=== PATIENT | female | born 1950 | race Caucasian/White ===

== ENCOUNTER 2017-08-03 13:38 | Emergency (ER) | payer MEDICARE, BC ==
[~2017-08-03] VITALS: Ht 160 cm; Wt 73.0 kg
[2017-08-03 14:19] VITALS: BP 152/92; PULSE 82; RESP 16; TEMP 98.6; O2SAT 98
[2017-08-03 14:20] VITALS: RESP 16; O2SAT 98
[2017-08-03] MEDS ORDERED: LABE200T2 PO (14:33)
[2017-08-03] MEDS ORDERED: LOSA100T3 PO (14:33)
[2017-08-03] MEDS ORDERED: PROT40TA PO (14:33)
[2017-08-03] MEDS ORDERED: SODIUM CHLOR 0.9% 1000 ML INJ 1,000 ML IV ONE (14:33)
[2017-08-03] MEDS ORDERED: LIAL1.2T PO (14:33)
[2017-08-03] MEDS ORDERED: DOXA1TAB34 PO (14:33)
[2017-08-03] MEDS ORDERED: SODIUM CHLORIDE 0.9% FLUSH 10 ML FLUSH IVF PRN (14:45)
[2017-08-03] MEDS ORDERED: ONDANSETRON HCL 4 MG/2 ML VIAL IV PUSH ONE (14:45)
[2017-08-03 15:13] LABS: AUTOMATED NEUTROPHIL # 4.5 TH/MM3 (1.8-7.7); BASOPHIL % 0.4 % (0.0-2.0); CHLORIDE 101 MEQ/L (98-107); EOSINOPHIL # 0.1 TH/MM3 (0-0.4); EOSINOPHIL % 0.9 % (0.0-4.0); HEMO FLAGS DIFF FINAL; LYMPH % 18.3 % (9.0-44.0); LYMPHOCYTE # 1.2 TH/MM3 (1.0-4.8); MEAN CELL VOLUME 81.6 FL (80.0-100.0); MEAN CORPUSCULAR HEMOGLOBIN 27.8 PG (27.0-34.0); MONO % 7.3 % (0.0-8.0); NEUT % 73.1 % (16.0-70.0); PLATELET COUNT 328 TH/MM3 (150-450); POTASSIUM 3.6 MEQ/L (3.5-5.1); RED BLOOD COUNT 2.94 MIL/MM3 (4.00-5.30); RED CELL DISTRIBUTION WIDTH 15.8 % (11.6-17.2); SODIUM (NA) 134 MEQ/L (136-145); WHITE BLOOD COUNT 6.3 TH/MM3 (4.0-11.0)
[2017-08-03 15:18] LABS: ANION GAP 9 MEQ/L (5-15); BICARBONATE 24.2 MEQ/L (21.0-32.0); BLOOD UREA NITROGEN 24 MG/DL (7-18); MAGNESIUM 1.9 MG/DL (1.5-2.5)
[2017-08-03 15:21] VITALS: BP 153/86; PULSE 80; RESP 16; O2SAT 97
[2017-08-03 15:21] LABS: ALT (GPT) 26 U/L (10-53); AST (GOT) 26 U/L (15-37); GLOMERULAR FILTRATION RATE 55 ML/MIN (>89)
[2017-08-03 15:22] LABS: TOTAL BILIRUBIN ADULT 0.3 MG/DL (0.2-1.0)
--- NOTE | 2017-08-03 15:23 | PD ---
HPI Chief Complaint: Syncope/Near-Syncope Time Seen by Provider: 14:33 Travel History International Travel<30 days: No Contact w/Intl Traveler<30days: No Traveled to known affect area: No History of Present Illness HPI 66 year old female presents with syncopal episode prior to arrival to the ED. She states that she has had lightheadedness, dizziness and and nausea for 2 days. Today she was making lunch at the kitchen counter when she felt lightheaded and fainted. She had a banana fro breakfast and had not eaten since then. Her friend was present and caught her so there were no falls or injuries. There was no seizure-like activity, tongue biting, or bowel/bladder incontinence noted. It took about 5 minutes for her to return to baseline. She is still experiencing lightheadedness and nausea. Patient is here visiting from [place]. She has had similar syncopal episodes in the past and has undergone extensive cardiac workup. She denies chest pain, vertigo, abdominal pain, changes in bowel or urination, dark stools or fever. Modifying Factors: None Associated Signs & Symptoms: Syncopal episode Risk Factors: Previous history of syncopal episode PFSH Past Medical History Cardiovascular Problems: Yes (htn on meds) Diverticulitis: Yes (colitis) GERD: Yes Hypertension: Yes Tetanus Vaccination: > 5 Years Influenza Vaccination: No ?: Not Menopausal: Yes Past Surgical History Cholecystectomy: Yes Other Surgery: Yes (hemorrhoids) Social History Alcohol Use: No Tobacco Use: No Substance Use: No Allergies-Medications (Allergen,Severity, Reaction): Coded Allergies: No Known Allergies (Unverified , 08/03/17) Reported Meds & Prescriptions Reported Meds & Active Scripts Active Reported Labetalol (Labetalol HCl) 200 Mg Tab 200 Mg PO TID Doxazosin (Doxazosin Mesylate) 4 Mg Tab 4 Mg PO DAILY Lialda (Mesalamine) 1.2 Gm Tabdr 2.4 Gm PO DAILY Take with a meal. Losartan-Hydrochlorothiazide 100-12.5 Mg Tab 1 Tab PO DAILY Protonix (Pantoprazole Sodium) 40 Mg Tab 40 Mg PO BID Review of Systems Except as stated in HPI: all other systems reviewed are Neg Physical Exam Narrative GENERAL: well-developed, well-nourished pleasant elderly white female who appears uncomfortable but in no acute distress. Awake and oriented 3. SKIN: Warm and dry. HEAD: Atraumatic. Normocephalic. EYES: Pupils equal and round. No scleral icterus. No injection or drainage. ENT: No nasal bleeding or discharge. Mucous membranes pink and moist. NECK: Trachea midline. No JVD. Supple. CARDIOVASCULAR: Regular rate and rhythm. Pulses present and equal bilaterally. RESPIRATORY: No accessory muscle use. Clear to auscultation. Breath sounds equal bilaterally. GASTROINTESTINAL: Abdomen soft, non-tender, nondistended. Hepatic and splenic margins not palpable. MUSCULOSKELETAL: Extremities without clubbing, cyanosis, or edema. No obvious deformities. NEUROLOGICAL: Awake and alert. No obvious cranial nerve deficits. Motor grossly within normal limits. Five out of 5 muscle strength in the arms and legs. Normal speech. PSYCHIATRIC: Appropriate mood and affect; insight and judgment normal. Data Data Last Documented VS Vital Signs Date Time Temp Pulse Resp B/P (MAP) Pulse Ox O2 Delivery O2 Flow Rate FiO2 08/03/17 16:06 78 16 161/90 (113) 97 Room Air 08/03/17 14:19 98.6 Orders Orders Electrocardiogram (08/03/17 14:33) Complete Blood Count With Diff (08/03/17 14:33) Comprehensive Metabolic Panel (08/03/17 14:33) Magnesium (Mg) (08/03/17 14:33) Ckmb (Isoenzyme) Profile (08/03/17 14:33) Troponin I (08/03/17 14:33) Urinalysis - C+S If Indicated (08/03/17 14:33) Chest, Single Ap (08/03/17 14:33) Ecg Monitoring (08/03/17 14:33) Iv Access Insert/Monitor (08/03/17 14:33) Oximetry (08/03/17 14:33) Sodium Chloride 0.9% Flush (Ns Flush) (08/03/17 14:45) Sodium Chlor 0.9% 1000 Ml Inj (Ns 1000 M (08/03/17 14:33) Ondansetron Inj (Zofran Inj) (08/03/17 14:45) Labs Laboratory Tests Test 08/03/17 14:55 08/03/17 16:00 White Blood Count 6.3 TH/MM3 Red Blood Count 2.94 MIL/MM3 Hemoglobin 8.2 GM/DL Hematocrit 24.0 % Mean Corpuscular Volume 81.6 FL Mean Corpuscular Hemoglobin 27.8 PG Mean Corpuscular Hemoglobin Concent 34.0 % Red Cell Distribution Width 15.8 % Platelet Count 328 TH/MM3 Mean Platelet Volume 7.5 FL Neutrophils (%) (Auto) 73.1 % Lymphocytes (%) (Auto) 18.3 % Monocytes (%) (Auto) 7.3 % Eosinophils (%) (Auto) 0.9 % Basophils (%) (Auto) 0.4 % Neutrophils # (Auto) 4.5 TH/MM3 Lymphocytes # (Auto) 1.2 TH/MM3 Monocytes # (Auto) 0.5 TH/MM3 Eosinophils # (Auto) 0.1 TH/MM3 Basophils # (Auto) 0.0 TH/MM3 CBC Comment DIFF FINAL Differential Comment Blood Urea Nitrogen 24 MG/DL Creatinine 1.00 MG/DL Random Glucose 126 MG/DL Total Protein 11.8 GM/DL Albumin 2.3 GM/DL Calcium Level 9.6 MG/DL Magnesium Level 1.9 MG/DL Alkaline Phosphatase 57 U/L Aspartate Amino Transf (AST/SGOT) 26 U/L Alanine Aminotransferase (ALT/SGPT) 26 U/L Total Bilirubin 0.3 MG/DL Sodium Level 134 MEQ/L Potassium Level 3.6 MEQ/L Chloride Level 101 MEQ/L Carbon Dioxide Level 24.2 MEQ/L Anion Gap 9 MEQ/L Estimat Glomerular Filtration Rate 55 ML/MIN Total Creatine Kinase 72 U/L Troponin I LESS THAN 0.02 NG/ML Urine Collection Type CLEAN CATCH Urine Color YELLOW Urine Turbidity CLEAR Urine pH 5.5 Urine Specific Tyler 1.013 Urine Protein 100 mg/dL Urine Glucose (UA) NEG mg/dL Urine Ketones NEG mg/dL Urine Occult Blood LARGE Urine Nitrite NEG Urine Bilirubin NEG Urine Leukocyte Esterase NEG Urine RBC 15-19 /hpf Urine WBC 0-2 /hpf Urine Squamous Epithelial Cells 0-5 /hpf Urine Hyaline Casts 10-14 /lpf Microscopic Urinalysis Comment CULT NOT INDICATED Urine Collection Time 16:00 [facility] Medical Decision Making Medical Screen Exam Complete: Yes Emergency Medical Condition: Yes Medical Record Reviewed: Yes Interpretation(s) EKG shows NSR, no ST elevation or depression, and no arrhythmias. No significant T-wave inversions. Laboratory Tests Test 08/03/17 14:55 08/03/17 16:00 Red Blood Count 2.94 MIL/MM3 (4.00-5.30) Hemoglobin 8.2 GM/DL (11.6-15.3) Hematocrit 24.0 % (35.0-46.0) Neutrophils (%) (Auto) 73.1 % (16.0-70.0) Blood Urea Nitrogen 24 MG/DL (7-18) Random Glucose 126 MG/DL (74-106) Total Protein 11.8 GM/DL (6.4-8.2) Albumin 2.3 GM/DL (3.4-5.0) Sodium Level 134 MEQ/L (136-145) Estimat Glomerular Filtration Rate 55 ML/MIN (>89) Troponin I LESS THAN 0.02 NG/ML Urine Protein 100 mg/dL (NEG-TRACE) Urine Occult Blood LARGE (NEG) Urine RBC 15-19 /hpf (0-3) Urine Hyaline Casts 10-14 /lpf (RARE) Last 24 hours Impressions Chest X-Ray 08/03/17 1433 Signed Impressions: Service Date/Time: Tuesday, August 03, 2017 15:14 - CONCLUSION: Mild congestive failure. Angelo Boss MD FACR Differential Diagnosis Sepsis versus dehydration versus metabolic issues versus dysrhythmias versus ACS versus vasovagal Narrative Course Patient is fairly asymptomatic in the ER. She has no focal neurological deficits, no chest pains, no shortness of breath, and I am not suspecting underlying cardiac factors in this case. Her EKG did not show any signs of dysrhythmias. There are no signs of delta waves or bronchial patient QTs. At this point, lab work returns showing some mild anemia. Patient denies any black stools, blood in the stools, or bleeding anywhere. It is uncertain whether this is new or not, patient's records and primary care physician is in [place]. Abdomen is otherwise benign, and vital signs are stable. My plan would be to release her with follow-up to primary care doctor in a week. We will give her iron. Return for any worsening in dizziness, further syncope, chest pains, or new issues as needed. The plan has been discussed with her and she states understanding. Diagnosis Primary Impression: Syncope Additional Impression: Anemia Med/Other Pt SpecificInfo: Prescription(s) given Scripts Ferrous Sulfate (Iron) 325 Mg Cap 325 MG PO BIDPC for Nutritional Supplement, #20 TAB 0 Refills Prov: [place] Madera MD 08/03/17 Disposition: 01 DISCHARGE HOME Condition: Stable [place] Madera MD Aug 03, 2017 15:23
[2017-08-03 15:24] LABS: ALKALINE PHOSPHATASE 57 U/L (45-117)
[2017-08-03 15:27] LABS: CREATINE KINASE 72 U/L (26-192)
--- NOTE | 2017-08-03 15:35 | RADRPT ---
EXAM DATE/TIME: 08/03/2017 15:14 [facility] COMPARISON: No previous studies available for comparison. INDICATIONS : Syncopal episode today MEDICAL HISTORY : None. SURGICAL HISTORY : None. ENCOUNTER: Initial ACUITY: 1 day PAIN SCORE: 0/10 LOCATION: Bilateral chest FINDINGS: Heart is minimally enlarged. Mild interstitial edema is present. There is no consolidation, pneumot horax or pleural effusion. The portion of the bony skeleton visualized is unremarkable. CONCLUSION: Mild congestive failure. Angelo Boss MD FACR on August 03, 2017 at 15:34 Board Certified Radiologist. This report was verified electronically.
[2017-08-03 16:06] VITALS: BP 161/90; PULSE 78; RESP 16; O2SAT 97
[2017-08-03 16:12] LABS: BLOOD, URINE LARGE (NEG); GLUCOSE,URINE NEG (NEG); KETONE, URINE NEG (NEG); NITRITE,URINE NEG (NEG); PH, URINE 5.5 (5.0-8.5)
[2017-08-03 16:22] LABS: METHOD OF COLLECTION CLEAN CATCH; URINE COLOR YELLOW (YELLW/STRAW)
[2017-08-03 16:23] LABS: RBC, URINE 15-19 /hpf (0-3); SQUAMOUS EPITHELIAL CELL URINE 0-5 /hpf (0-5); WBC, URINE 0-2 /hpf (0-5)
[2017-08-03 16:24] LABS: COMMENT (UR) CULT NOT INDICATED; CULTURE IF INDICATED CULT NOT INDICATED
[2017-08-03] MEDS ORDERED: FERR325C PO (16:38)
--- NOTE | 2017-08-03 16:38 | EKG ---
Date Performed: 08/03/2017 Time Performed: 14:39:55 PTAGE: 66 years EKG: Baseline artifact present Sinus rhythm VOLTAGE CRITERIA FOR LVH ABNORMAL ECG NO PREVIOUS TRACING DOCTOR: Humberto Felton Interpretating Date/Time 08/03/2017 16:36:35
[2017-08-03 16:57] VITALS: BP 172/85
== END 2017-08-03 17:20 | disposition home or self-care (01) ==
LOC: PHED 13:38
DX: R55 Syncope and collapse (principal); D64.9 Anemia, unspecified; R94.31 Abnormal electrocardiogram [ECG] [EKG]; I10 Essential (primary) hypertension
CPT/HCPCS: 71010; 80053; 81001; 82550; 83735; 84484; 85025; 93005; 96361; 96374; 99285; J2405; J7030